=== PATIENT | male | born 1960 | race Two or more races ===

== ENCOUNTER 2016-09-26 10:17 | Emergency (ER) | payer BC ==
[2016-09-26 10:25] VITALS: TEMP 98.1; BMI 31.0
--- NOTE | 2016-09-26 10:49 | PDOC ---
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) Time Seen by Provider: 09/26/16 10:31 History Source: Patient - History of Present Illness Timing/Duration: reports: constant Quality: reports: aching Abdominal Pain Onset Location: reports: [facility] Past History - Past Medical History Allergies/Adverse Reactions: Allergies Allergy/AdvReac Type Severity Reaction Status Date / Time No Known Drug Allergies Allergy Verified 09/26/16 10:19 Home Medications: Ambulatory Orders Meclizine HCl [Antivert -] 25 mg PO TID PRN 03/22/15 Ciprofloxacin [Cipro -] 500 mg PO Q12H #14 tablet 09/26/16 Metronidazole [Flagyl -] 500 mg PO Q6H #28 tablet 09/26/16 Ondansetron [Zofran -] 4 mg PO PRN PRN 09/26/16 Tramadol HCl 50 mg PO Q6H #15 tablet MDD 200 09/26/16 GI Disorders: Yes (DIVERTICULITIS) HTN: Yes Hypercholesterolemia: Yes (BORDERLINE) Other medical history: 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 - Psycho/Social/Smoking Cessation Hx Anxiety: No Suicidal Ideation: No Smoking History: Never smoked Have you smoked in the past 12 months: No Information on smoking cessation initiated: No Hx Alcohol Use: No Drug/Substance Use Hx: No Substance Use Type: None Review of Systems - Review of Systems Constitutional: No: Chills, Fever Respiratory: No: Shortness of Breath Cardiac (ROS): No: Chest Pain ABD/GI: No: Diarrhea, Nausea, Vomiting : No: Dysuria Musculoskeletal: No: Back Pain *Physical Exam - Vital Signs Last Vital Signs Temp Pulse Resp BP Pulse Ox 98.1 F 78 18 119/68 100 09/26/16 10:19 09/26/16 10:19 09/26/16 10:19 09/26/16 10:19 09/26/16 10:19 - Physical Exam General Appearance: Yes: Appropriately Dressed. No: Apparent Distress HEENT: positive: Normal Voice Neck: positive: Supple Respiratory/Chest: positive: Lungs Clear, Normal Breath Sounds. negative: Respiratory Distress Cardiovascular: positive: Regular Rate, S1, S2 Gastrointestinal/Abdominal: positive: Normal Bowel Sounds, Tender, Soft. negative: Distended, Guarding, Rebound Musculoskeletal: negative: CVA Tenderness Integumentary: positive: Dry, Warm Neurologic: positive: Fully Oriented, Alert, Normal Mood/Affect ED Treatment Course - LABORATORY CBC & Chemistry Diagram: 09/26/16 10:45 09/26/16 10:45 - RADIOLOGY Radiology Studies Ordered: Category Date Time Status ABDOMEN & PELVIS CT WITH CONTR [CT] Stat CT Scan 09/26/16 10:33 Ordered Medical Decision Making - Medical Decision Making 09/26/16 10:47 56-year-old male, history of diverticulitis that was medically managed here with lower abdominal pain 2 days, similar to prior diverticulitis. No change in bowel movements, dysuria, nausea, vomiting, fever or chills. See exam Abd pain R/o recurrent diverticulitis -pain control -labs -CT 09/26/16 14:03 CT w/ diverticulitis of mid sigmoid without e/o abscess or perf. Radiology called to also report possible 2cm lesion to L kidney incidentally, pt will need out-pt MRI. Pt informed of report, states pain minimal and refused morphine earlier. Will give 1st dose cipro/flagyl in ED and discharge w/ rx and strict return precautions 09/26/16 16:10 Dr Moncada made aware of CT findings and dispo. Will f/u with pt *DC/Admit/Observation/Transfer Diagnosis at time of Disposition: Diverticulitis Qualifiers: Diverticulitis site: large intestine Diverticulitis bleeding: without bleeding Diverticulitis complication: without perforation or abscess Qualified Code(s): K57.32 - Diverticulitis of large intestine without perforation or abscess without bleeding - Discharge Dispostion Disposition: HOME Condition at time of disposition: Improved - Prescriptions Prescriptions: Ciprofloxacin [Cipro -] 500 mg PO Q12H #14 tablet Metronidazole [Flagyl -] 500 mg PO Q6H #28 tablet Tramadol HCl 50 mg PO Q6H #15 tablet MDD 200 - Referrals Referrals: Lito Moncada MD [Primary Care Provider] - - Patient Instructions Printed Discharge Instructions: Diverticulitis Additional Instructions: Take medications as needed and return for worsening of symptoms, otherwise follow up with PMD for further evaluation and possible MRI of left kidney
[2016-09-26] MEDS: morphine CARPU-JECT 4 MG/1 ML DISP.SYRIN IVPUSH ONE ×2 (10:50→14:10)
[2016-09-26 11:08] LABS: BASOPHIL 0.5 % (0-2.0); EOSINOPHIL 0.3 % (0-4.5); MCH 29.1 pg (25.7-33.7); MCHC 33.8 g/dl (32.0-35.9); MEAN CELL VOLUME 86.2 fl (80-96); MEAN PLT VOLUME 9.1 fl (7.5-11.1); PLATELET COUNT 136 K/MM3 (134-434); RDW 13.7 % (11.9-15.9)
[2016-09-26 11:34] LABS: ALBUMIN 3.9 g/dl (3.4-5.0); ANION GAP 7 (8-16); BILIRUBIN,TOTAL 0.7 mg/dL (0.2-1.0); CALCIUM 8.7 mg/dL (8.5-10.1); CO2 29 mmol/L (21-32); GLUCOSE,RANDOM 115 mg/dL (74-106); SGOT/AST 19 U/L (15-37); SGPT/ALT 27 U/L (12-78); TOT PROT 6.9 g/dl (6.4-8.2)
[2016-09-26 11:35] LABS: ALK PHOS 89 U/L (45-117)
[2016-09-26 11:42] LABS: URINE APPEARANCE CLEAR; URINE BILIRUBIN NEGATIVE (NEGATIVE); URINE BLOOD NEGATIVE (NEGATIVE); URINE COLOR YELLOW; URINE GLUCOSE (UA) NEGATIVE (NEGATIVE); URINE KETONE NEGATIVE (NEGATIVE); URINE LEUK ESTERASE NEGATIVE (NEGATIVE); URINE NITRITE NEGATIVE (NEGATIVE); URINE PROTEIN NEGATIVE (NEGATIVE); URINE UROBILINOGEN NEGATIVE E.U./dl (0.2-1.0)
[2016-09-26] MEDS ORDERED: CIPROFLOXACIN 400 MG/D5W 200 ML IVPB ONE (13:55)
[2016-09-26] MEDS ORDERED: METRONIDAZOLE 500 MG PREMIXED 100 ML IVPB ONE ×2 (13:55→14:09)
[2016-09-26] MEDS ORDERED: morphine CARPU-JECT 2 MG/1 ML DISP.SYRIN ONE (14:09)
[2016-09-26 16:12] VITALS: BP 121/70; PULSE 77
== END 2016-09-26 16:12 | disposition home or self-care (01) ==
LOC: JER 10:17
PROC: 3E033NZ Introduction of Analgesics, Hypnotics, Sedatives into Peripheral Vein, Percutaneous Approach (ICD-10-PCS; principal; 2016-09-26)
PROC: 3E03329 Introduction of Other Anti-infective into Peripheral Vein, Percutaneous Approach (ICD-10-PCS; 2016-09-26)
PROC: 3E03329 Introduction of Other Anti-infective into Peripheral Vein, Percutaneous Approach (ICD-10-PCS; 2016-09-26)
DX: E78.00 Pure hypercholesterolemia, unspecified (principal)
CPT/HCPCS: 36415; 74177-TC; 80053; 81003; 83690; 85025; 86850; 86900; 86901; 99282-25; Q9967

== ENCOUNTER 2020-05-25 04:47 | Day surgery (SDC) | payer OTHER ==
[2020-05-24 18:21] VITALS: BMI 31.0
[2020-05-25] MEDS ORDERED: ACETAMINOPHEN 325 MG TABLET (FP) PO ONE (11:33)
[2020-05-25] MEDS ORDERED: oxyCODONE HCL 5 MG TABLET PO ONE (11:35)
[2020-05-25 15:18] VITALS: BP 114/71; PULSE 84; TEMP 98.4
== END 2020-05-25 15:50 | disposition home or self-care (01) ==
LOC: JRADIR 04:47
PROVIDERS: ATTEND Internal Medicine Gastroenterology
PROC: 0FB13ZX Excision of Right Lobe Liver, Percutaneous Approach, Diagnostic (ICD-10-PCS; principal; 2020-05-25)
DX: K75.9 Inflammatory liver disease, unspecified (principal)
CPT/HCPCS: 76942-TC; 87899; 88305-TC

== ENCOUNTER 2020-06-25 05:15 | Day surgery (SDC) | payer OTHER ==
[2020-06-19 15:21] VITALS: BMI 29.5
[2020-06-25 11:13] VITALS: TEMP 98.1
[2020-06-25 11:43] VITALS: BP 119/69
[2020-06-25 12:08] VITALS: PULSE 65
== END 2020-06-25 13:00 | disposition home or self-care (01) ==
LOC: JASU-ENDO 05:15
PROVIDERS: ATTEND Internal Medicine Gastroenterology
PROC: 0DB68ZX Excision of Stomach, Via Natural or Artificial Opening Endoscopic, Diagnostic (ICD-10-PCS; 2020-06-25)
PROC: 0DB48ZX Excision of Esophagogastric Junction, Via Natural or Artificial Opening Endoscopic, Diagnostic (ICD-10-PCS; 2020-06-25)
PROC: 0DB98ZX Excision of Duodenum, Via Natural or Artificial Opening Endoscopic, Diagnostic (ICD-10-PCS; principal; 2020-06-25 10:00)
DX: R63.4 Abnormal weight loss (principal); K29.80 Duodenitis without bleeding; K29.50 Unspecified chronic gastritis without bleeding; K21.00 Gastro-esophageal reflux disease with esophagitis, without bleeding; K44.9 Diaphragmatic hernia without obstruction or gangrene; K22.10 Ulcer of esophagus without bleeding
CPT/HCPCS: 88305-TC; 88342-TC

== ENCOUNTER 2021-01-31 14:25 | Observation (INO) | payer OTHER, MEDICARE ==
[2021-01-31 14:36] VITALS: BMI 27.2
[2021-01-31 16:28] LABS: EOS % 3.1 % (0-4.5); HEMATOCRIT 37.3 % (35.4-49); HEMOGLOBIN 12.5 GM/dL (11.7-16.9); LYMPH % 26.1 % (8-40); MCH 28.3 pg (25.7-33.7); MCHC 33.5 g/dl (32.0-35.9); MEAN CELL VOLUME 84.7 fl (80-96); MEAN PLT VOLUME 8.6 fl (7.5-11.1); MONO % 10.9 % (3.8-10.2); NEUT % 58.9 % (42.8-82.8); PLATELET COUNT 156 10^3/uL (134-434); RBC 4.41 M/mm3 (4.00-5.60); RDW 14.1 % (11.9-15.9); WHITE BLOOD COUNT 5.1 K/mm3 (4.0-10.0)
[2021-01-31 16:36] LABS: INR 0.97 (0.83-1.09); PROTHROMBIN TIME (PATIENT) 11.8 SEC (9.7-13.0)
[2021-01-31 16:39] LABS: ACTIVATED PTT 29.3 SECONDS (25.2-36.5)
[2021-01-31 16:55] LABS: CHLORIDE 105 mmol/L (98-107); SODIUM 140 mmol/L (136-145)
[2021-01-31 16:57] LABS: ALBUMIN 3.9 g/dl (3.4-5.0); ANION GAP 7 MMOL/L (8-16); BLOOD UREA NITROGEN 13.6 mg/dL (7-18); CALCIUM 9.1 mg/dL (8.5-10.1); CO2 28 mmol/L (21-32)
[2021-01-31 16:58] LABS: GLUCOSE,RANDOM 87 mg/dL (74-106)
[2021-01-31 17:00] LABS: CREATININE 1.1 mg/dL (0.55-1.3); SGOT/AST 30 U/L (15-37); SGPT/ALT 28 U/L (13-61)
[2021-01-31 17:02] LABS: BILIRUBIN,TOTAL 0.4 mg/dL (0.2-1); TOT PROT 7.9 g/dl (6.4-8.2)
[2021-01-31 17:03] LABS: ALK PHOS 98 U/L (45-117)
[2021-01-31] MEDS ORDERED: ASPIRIN 81 MG CHEWABLE TABLETS PO ONE (17:29)
[2021-01-31] MEDS ORDERED: ASPIRIN 81 MG CHEWABLE TABLETS ONE (17:38)
[2021-01-31] MEDS ORDERED: ACETAMINOPHEN 1000 MG/100 ML VIAL (NON FORMULARY) IVPB ONE (17:44)
[2021-01-31] MEDS ORDERED: traMADol HCL 50 MG TABLET PO ONE (23:15)
[2021-02-01] MEDS ORDERED: ACETAMINOPHEN 325 MG TABLET (FP) PO PRN
[2021-02-01 07:28] LABS: BASO % 1.1 % (0-2.0); EOS % 6.3 % (0-4.5); HEMATOCRIT 37.5 % (35.4-49); HEMOGLOBIN 12.3 GM/dL (11.7-16.9); LYMPH % 30.8 % (8-40); MCH 28.2 pg (25.7-33.7); MCHC 32.8 g/dl (32.0-35.9); MEAN CELL VOLUME 86.2 fl (80-96); MEAN PLT VOLUME 8.7 fl (7.5-11.1); NEUT % 48.8 % (42.8-82.8); PLATELET COUNT 135 10^3/uL (134-434); RBC 4.35 M/mm3 (4.00-5.60); WHITE BLOOD COUNT 3.8 K/mm3 (4.0-10.0)
[2021-02-01 07:54] LABS: ALBUMIN 3.6 g/dl (3.4-5.0); BLOOD UREA NITROGEN 13.6 mg/dL (7-18); MAGNESIUM 2.2 mg/dL (1.8-2.4)
[2021-02-01 07:57] LABS: CHOLESTEROL 195 mg/dL (50-200); TRIGLYCERIDES 81 mg/dL (0-150)
[2021-02-01 07:58] LABS: BILIRUBIN,TOTAL 0.5 mg/dL (0.2-1); HDL CHOLESTEROL 41 mg/dL (40-60); LDL CHOLESTEROL (ONLY SJRH) 133 mg/dL (5-100); TOT PROT 7.2 g/dl (6.4-8.2)
[2021-02-01] MEDS ORDERED: MECLIZINE HCL 25 MG TABLET (FP) PO PRN (09:08)
[2021-02-01] MEDS ORDERED: ATORVASTATIN CA 20 MG TABLET (FP) PO ONE (09:15)
[2021-02-01] MEDS ORDERED: ASPIRIN 81 MG CHEWABLE TABLETS PO SCH (10:00)
[2021-02-01 14:11] VITALS: BP 100/62; PULSE 79; TEMP 97.9
[2021-02-02] MEDS ORDERED: ATORVASTATIN CA 20 MG TABLET (FP) PO SCH (22:00)
== END 2021-02-01 16:40 | disposition left against medical advice (07) ==
LOC: JER 14:25 → JERBED 17:41 → J4S 21:13
PROVIDERS: ADMIT Hospitalist; ATTEND Family Medicine
PROC: 3E033NZ Introduction of Analgesics, Hypnotics, Sedatives into Peripheral Vein, Percutaneous Approach (ICD-10-PCS; principal; 2021-01-31)
DX: R07.9 Chest pain, unspecified (principal); H81.09 Meniere's disease, unspecified ear; E04.1 Nontoxic single thyroid nodule; I10 Essential (primary) hypertension; E78.5 Hyperlipidemia, unspecified; R16.0 Hepatomegaly, not elsewhere classified; M54.9 Dorsalgia, unspecified; Z20.822 Contact with and (suspected) exposure to COVID-19; K57.30 Diverticulosis of large intestine without perforation or abscess without bleeding
CPT/HCPCS: 36415; 71046-TC-FY; 71275-TC; 80053; 80061; 82550; 82553; 83721; 83735; 84443; 84484; 85025; 85610; 85730; 93005; 93010; 93306-TC; 96374; 99285-25; C9803; G0378; J0131; Q9967; U0003; U0005